=== PATIENT | female | born 1990 | race African-American/Black ===

== ENCOUNTER 2017-05-05 21:28 | Emergency (ER) | payer OTHER ==
[~2017-05-05] VITALS: Ht 170.2 cm; Wt 66.1 kg
[2017-05-05 22:34] LABS: HEMATOCRIT 34.6 % (36.0-46.0); MCH 31.2 PG (29.0-34.0); MCHC 34.4 G/DL (30.0-36.0); MCV 90.8 FL (83-99); MEAN PLAT.VOLUME 9.9 uM^3 (9.5-12.4); PLATELET COUNT 245 K/uL (156-360); RBC DIS.WIDTH-CV 11.9 % (11.8-14.6); RBC DIS.WIDTH-SD 39.7 % (39-53); RED BLOOD COUNT 3.81 M/uL (3.80-5.20); WHITE BLOOD COUNT 6.1 K/uL (4.1-10.2)
[2017-05-05 22:48] LABS: CHLORIDE 107 mEq/L (99-109)
[2017-05-05 22:49] LABS: SODIUM 136 mEq/L (136-147)
[2017-05-05 22:50] LABS: GLUCOSE 91 mg/dL (70-99)
[2017-05-05 22:52] LABS: ANION GAP 6 MEQ/L (2-14)
[2017-05-05 22:54] LABS: GFR ESTIMATE (CALCULATED) > 59 mL/min/
[2017-05-05 22:55] LABS: UREA NITROGEN (BUN) 15 mg/dL (9-23)
[2017-05-05 23:04] LABS: QUANTITATIVE HCG 403.3 MIU/ML
[2017-05-06 00:22] VITALS: BP 104/66
== END 2017-05-06 00:25 | disposition home or self-care (01) ==
LOC: EME 21:28
PROVIDERS: Physician Assistant
DX: O26.891 Other specified pregnancy related conditions, first trimester (principal); R10.9 Unspecified abdominal pain; Z3A.00 Weeks of gestation of pregnancy not specified; J45.909 Unspecified asthma, uncomplicated; O99.331 Smoking (tobacco) complicating pregnancy, first trimester; F17.200 Nicotine dependence, unspecified, uncomplicated; Z91.040 Latex allergy status
CPT/HCPCS: 76801; 80048; 81003; 84702; 85027; 86850; 86900; 86901; 99281; 99284